=== PATIENT | male | born 1980 | race Caucasian/White ===

== ENCOUNTER 2018-08-30 22:41 | Observation (INO) | payer MEDICAID ==
[~2018-08-30] VITALS: Ht 160 cm; Wt 75.7 kg
[2018-08-31] MEDS ORDERED: FUROSEMIDE 40 MG INJ IV ONE (01:30)
[2018-08-31] MEDS ORDERED: morphine 2 MG INJ IV PRN ×2 (03:00→03:30)
[2018-08-31] MEDS ORDERED: NACL 0.9% 3 ML SYG IV SCH ×2 (03:00→03:30)
[2018-08-31] MEDS ORDERED: ONDANSETRON 4 MG INJ IV PRN ×2 (03:00→03:30)
--- NOTE | 2018-08-31 03:49 | ERD ---
ER Documentation Chief Complaint Chief Complaint Cirrohisis, c/o AP, SOB HPI This is a 29-year-old male who complains of abdominal pain and shortness of breath. Patient has history of cirrhosis and says he had increasing abdominal g irth over the past few days. Denies any fevers chills nausea vomiting denies any other current complaints. Denies any other current issues. Patient states that history of peritoneal times previously. ROS All systems reviewed and are negative except as per history of present illness. Allergies Allergies: Coded Allergies: No Known Allergy (Unverified , 08/30/18) PMhx/Soc Medical and Surgical Hx: pt denies Surgical Hx History of Surgery: No Anesthesia Reaction: No Hx Neurological Disorder: No Hx Respiratory Disorders: No Hx Cardiac Disorders: No Hx Psychiatric Problems: No Hx Miscellaneous Medical Probl: Yes (LIVER CIRRHOSIS) Hx Alcohol Use: Yes Hx Substance Use: No Hx Tobacco Use: Yes Smoking Status: Former smoker Physical Exam Vitals Vital Signs Date Temp Pulse Resp B/P (MAP) Pulse Ox O2 O2 Flow FiO2 Time Delivery Rate 08/31/18 98.3 80 16 126/81 98 Room Air 02:57 (96) 08/30/18 98.3 101 16 154/69 100 23:13 (97) Physical Exam Const: No acute distress Head: Atraumatic Eyes: Normal Conjunctiva ENT: Normal External Ears, Nose and Mouth. Neck: Full range of motion. No meningismus. Resp: Clear to auscultation bilaterally Cardio: Regular rate and rhythm, no murmurs Abd: Soft, non tender, palpable fluid wave. Normal bowel sounds Skin: No petechiae or rashes Back: No midline or flank tenderness Ext: No cyanosis, or edema Neur: Awake and alert Psych: Normal Mood and Affect Result Diagram: 08/31/18 0120 08/31/18 0120 Results 24 hrs Laboratory Tests Test 08/31/18 01:20 White Blood Count 3.3 10^3/ul Red Blood Count 3.11 10^6/ul Hemoglobin 10.6 g/dl Hematocrit 30.1 % Mean Corpuscular Volume 96.8 fl Mean Corpuscular Hemoglobin 34.1 pg Mean Corpuscular Hemoglobin Concent 35.2 g/dl Red Cell Distribution Width 13.8 % Platelet Count 49 10^3/UL Mean Platelet Volume 10.5 fl Immature Granulocytes % 0.300 % Neutrophils % 53.1 % Lymphocytes % 33.3 % Monocytes % 10.6 % Eosinophils % 2.1 % Basophils % 0.6 % Nucleated Red Blood Cells % 0.0 /100WBC Immature Granulocytes # 0.010 10^3/ul Neutrophils # 1.8 10^3/ul Lymphocytes # 1.1 10^3/ul Monocytes # 0.4 10^3/ul Eosinophils # 0.1 10^3/ul Basophils # 0.0 10^3/ul Nucleated Red Blood Cells # 0.0 10^3/ul Prothrombin Time 19.2 Sec Prothrombin Time Ratio 1.5 INR International Normalized Ratio 1.61 Activated Partial Thromboplast Time 37.1 Sec Sodium Level 136 mmol/L Potassium Level 3.4 mmol/L Chloride Level 101 mmol/L Carbon Dioxide Level 25 mmol/L Anion Gap 10 Blood Urea Nitrogen 12 mg/dl Creatinine 0.53 mg/dl Est Glomerular Filtrat Rate mL/min > 60 mL/min Glucose Level 94 mg/dl Calcium Level 8.4 mg/dl Total Bilirubin 2.2 mg/dl Direct Bilirubin 0.00 mg/dl Indirect Bilirubin 2.2 mg/dl Aspartate Amino Transf (AST/SGOT) 59 IU/L Alanine Aminotransferase (ALT/SGPT) 22 IU/L Alkaline Phosphatase 118 IU/L Troponin I < 0.012 ng/ml B-Type Natriuretic Peptide 82 PG/ML Total Protein 8.2 g/dl Albumin 3.3 g/dl Globulin 4.90 g/dl Albumin/Globulin Ratio 0.67 Ethyl Alcohol Level < 10.0 mg/dl Hepatitis B Surface Antigen Pending Hepatitis C Antibody Pending Current Medications Medications Dose Sig/Paula Start Time Status Last (Trade) Ordered Route PRN Stop Time Admin Dose Reason Admin Furosemide 40 mg ONCE ONCE 08/31/18 DC 08/31/18 (Lasix) IV 01:30 08/31/18 02:20 01:31 IV Flush 3 ml PER 08/31/18 (NS 3 ml) PROTOCOL IV 03:00 Ondansetron 4 mg Q6H PRN 08/31/18 HCl (Zofran IV 03:00 Inj) NAUSEA/VOMITI NG Morphine 2 mg Q4H PRN 08/31/18 Sulfate IV .SEVERE 03:00 (morphine) PAIN 7-10 IV Flush 3 ml PER 08/31/18 UNV (NS 3 ml) PROTOCOL IV 03:30 Ondansetron 4 mg Q6H PRN 08/31/18 UNV HCl (Zofran IV 03:30 Inj) NAUSEA/VOMITI NG Morphine 2 mg Q4H PRN 08/31/18 UNV Sulfate IV .SEVERE 03:30 (morphine) PAIN 7-10 40 mg DAILY@06 08/31/18 UNV Pantoprazole IV 06:00 (Protonix Iv) Procedures/MDM Chest X-ray 1V Interpreted by me: Soft Tissue: No acute abnormalities Bones: No acute abnormalities Mediastinum/Cardiac Silhouette/Lungs: [No acute abnormalities] Medical decision making: Is a 29-year-old male with a looks with tense ascites. Given the symptomatic nature, patient will be admitted for further evaluation management and likely peritoneal tap. Patient made aware to Dr. Whelan, the hospitalist vice president investor relations tonight. Departure Diagnosis: Primary Impression: Abdominal colic Condition: AMADOU Cheatham Aug 31, 2018 03:49
[2018-08-31 04:41] VITALS: Ht 160 cm; Wt 75.7 kg
[2018-08-31 05:14] VITALS: BP 128/72; PULSE 94; RESP 18
--- NOTE | 2018-08-31 05:29 | HP ---
Date/Time of Note Date/Time of Note DATE: 08/31/18 TIME: 05:29 Assessment/Plan VTE Prophylaxis SCD applied (from Nsg): Yes Pharmacological prophylaxis: NA/contraindicated Pharm contraindication: low risk/ambulating Lines/Catheters IV Catheter Type (from Nrsg): Saline Lock Assessment/Plan Hospital Course This is a 29-year-old male being admitted to the [facility] floor for: #1 acute on chronic decompensated alcoholic cirrhosis: Patient does present with abdominal ascites. Patient has a madrey score of 35 we will give the patient prednisone 40 mg p.o. x1, consult GI for further alcoholic hepatitis/cirrhosis management. Initiate the patient on Lasix 40 mg twice daily IV, will start spironolactone 25 mg p.o. daily. Patient at the current time is hesitant to proceed with ultrasound paracentesis ultrasound of the abdomen to assess ascites. 1 unit of platelets given patient's recent epistaxis, and possible need for paracentesis. continue lactulose #2 normocytic anemia: Secondary likely to underlying alcoholic cirrhosis. Currently no signs of active bleeding. Continue to monitor #3 thrombocytopenia: Secondary to alcoholic cirrhosis, will give 1 unit of platelets given that the patient has been having episodes of epistaxis. Also for possible paracentesis. #4 history of alcohol abuse: Patient reports that his last drink was 1 week ago and he has cut down the amount of drinking he is doing. We will need to encourage cessation. So the patient could be placed on a transplant list. #5 DVT GI prophylaxis: SCDs, Protonix Further treatment strategy will be implemented as per the clinical course. Result Diagram: 08/31/18 0120 08/31/18 0120 Results 24hrs Laboratory Tests Test 08/31/18 01:20 White Blood Count 3.3 L Red Blood Count 3.11 L Hemoglobin 10.6 L Hematocrit 30.1 L Mean Corpuscular Volume 96.8 Mean Corpuscular Hemoglobin 34.1 H Mean Corpuscular Hemoglobin Concent 35.2 Red Cell Distribution Width 13.8 Platelet Count 49 L Mean Platelet Volume 10.5 H Immature Granulocytes % 0.300 Neutrophils % 53.1 Lymphocytes % 33.3 Monocytes % 10.6 Eosinophils % 2.1 Basophils % 0.6 Nucleated Red Blood Cells % 0.0 Immature Granulocytes # 0.010 Neutrophils # 1.8 Lymphocytes # 1.1 Monocytes # 0.4 Eosinophils # 0.1 Basophils # 0.0 Nucleated Red Blood Cells # 0.0 Prothrombin Time 19.2 H Prothrombin Time Ratio 1.5 INR International Normalized Ratio 1.61 Activated Partial Thromboplast Time 37.1 H Sodium Level 136 Potassium Level 3.4 L Chloride Level 101 Carbon Dioxide Level 25 Anion Gap 10 Blood Urea Nitrogen 12 Creatinine 0.53 L Est Glomerular Filtrat Rate mL/min > 60 Glucose Level 94 Calcium Level 8.4 Total Bilirubin 2.2 H Direct Bilirubin 0.00 Indirect Bilirubin 2.2 H Aspartate Amino Transf (AST/SGOT) 59 H Alanine Aminotransferase (ALT/SGPT) 22 Alkaline Phosphatase 118 Troponin I < 0.012 B-Type Natriuretic Peptide 82 Total Protein 8.2 H Albumin 3.3 Globulin 4.90 H Albumin/Globulin Ratio 0.67 Ethyl Alcohol Level < 10.0 H Hepatitis B Surface Antigen NEGATIVE Hepatitis B Surface Antibody NEGATIVE Hepatitis C Antibody NEGATIVE HPI/ROS Admit Date/Time Admit Date/Time Aug 31, 2018 at 02:58 Hx of Present Illness Chief complaint: Abdominal distention This is a 37-year-old male with a history of alcoholic cirrhosis who presents today with worsening abdominal ascites. The patient presents today with a family member who reports that patient was diagnosed with cirrhosis approximately 4 months ago. He was initially started on Lasix as well as spironolactone. He has been following up at his clinic since then. He was discontinued off his spironolactone. At the current time he reports that he is noticing more abdominal distention which is resulting in a decreased appetite. He denies any fevers. He was offered a paracentesis in the past but he was hesitant to do it as he was somewhat scared. At the current time he only r eports that he is on Lasix. He denies any chest pain or nausea vomiting. Denies any hematuria or hematochezia, But does report recent nosebleeds. He reports his last alcoholic drink was 1 week ago. He has significantly cut down on his alcoholic intake he was previously a very heavy drinker. Allergies: NKDA Medications: See GABRIEL ROS Const: As per HPI Eyes : No pain discharge or redness or change in visual acuity ENT: No pain, sore throat, congestion, congestion, dysphagia or discharge Respiratory: No shortness of breath, cough, sputum, wheezing, or pleuritic pain Cardiovascular: No chest pain, palpitation, PND, or edema GI : As per HPI Genitourinary: No dysuria, hematuria, flank pain , discharge or CVA tenderness Musculoskeletal: No joint pain, back pain, neck pain, restricted range of motion in neck or joints Skin: No rash, bruising or hives Neuro: No headache, dizziness, syncope, seizure, focal weakness Endocrine: No polyuria, polydipsia, temperature intolerance Psych: No hallucination, depression, anxiety or suicidal ideation Additional Comments PROCEDURE: Single view chest. CLINICAL INDICATION: Chest pain TECHNIQUE: Single view of the chest was obtained COMPARISON: None FINDINGS: Lung volumes are diminished and there is mild elevation of the right diaphragm. No airspace consolidation, pleural effusion or pneumothorax. Cardiac silhouette and mediastinal contours are unremarkable. Regional bones appear intact. IMPRESSION: Diminished lung volumes and mild elevation of the right diaphragm. No additional acute findings. RPTAT: [facility] Physician Abad Date Time Electronically viewed and signed by Physician Abad on 08/31/2018 03:15 xB/ CC: AMADOU BRICEÑO [id number] PMH/Family/Social Past Medical History alcoholic cirrhosis Medications Current Medications IV Flush (NS 3 ml) 3 ml PER PROTOCOL IV ; Start 08/31/18 at 03:00 Ondansetron HCl (Zofran Inj) 4 mg Q6H PRN IV NAUSEA/VOMITING; Start 08/31/18 at 03:00 Morphine Sulfate (morphine) 2 mg Q4H PRN IV .SEVERE PAIN 7-10 Last administered on 08/31/18at 05:12; Admin Dose 2 MG; Start 08/31/18 at 03:00 IV Flush (NS 3 ml) 3 ml PER PROTOCOL IV ; Start 08/31/18 at 03:30 Ondansetron HCl (Zofran Inj) 4 mg Q6H PRN IV NAUSEA/VOMITING; Start 08/31/18 at 03:30 Morphine Sulfate (morphine) 2 mg Q4H PRN IV .SEVERE PAIN 7-10; Start 08/31/18 at 03:30 Pantoprazole (Protonix Iv) 40 mg DAILY@06 IV Last administered on 08/31/18at 05:01; Admin Dose 40 MG; Start 08/31/18 at 06:00 Coded Allergies: No Known Allergy (Unverified , 08/30/18) Past Surgical History Past Surgical Hx: no surgical history Family History Significant Family History: no pertinent family hx Social History former heavy drinker, over the last 4 months he has a cut down his drinking. Last drink was 1 week ago. Smoking Status: Never smoker Exam/Review of Systems Vital Signs Vitals Vital Signs Date Temp Pulse Resp B/P (MAP) Pulse Ox O2 O2 Flow FiO2 Time Delivery Rate 08/31/18 98.1 94 18 128/72 98 Room Air 05:14 (90) Exam Exam General: Patient is currently lying in bed in no acute distress HEENT: Atraumatic, normocephalic. The pupils are equal, round and reactive. Extraocular motor are intact, mild scleral icterus noted Neck: Supple with full range of motion. No rigidity or meningismus Chest: Nontender Lungs: Clear to auscultation bilaterally no crackles rales or wheezing Heart: Normal S1-S2, Regular rhythm and rate. No murmur, S3, or S4 Abdomen: Distended abdomen with ascites, non-tense, normal bowel sounds. No CVA tenderness bilaterally. Extremities: Normal to inspection, no edema no cyanosis Neurologic: Normal mental status, speech normal, cranial nerves II through XII are intact, motor and sensory are intact, Additional Comments PROCEDURE: Single view chest. CLINICAL INDICATION: Chest pain TECHNIQUE: Single view of the chest was obtained COMPARISON: None FINDINGS: Lung volumes are diminished and there is mild elevation of the right diaphragm. No airspace consolidation, pleural effusion or pneumothorax. Cardiac silhouette and mediastinal contours are unremarkable. Regional bones appear intact. IMPRESSION: Diminished lung volumes and mild elevation of the right diaphragm. No additional acute findings. RPTAT: [facility] Physician Abad Date Time Electronically viewed and signed by Physician Abad on 08/31/2018 03:15 xB/ CC: AMADOU BRICEÑO [id number] HAO MALLORY Aug 31, 2018 05:29
[2018-08-31] MEDS ORDERED: PANTOPRAZOLE 40 MG INJ IV SCH (06:00)
[2018-08-31 08:05] VITALS: BP 113/59; PULSE 88; RESP 15
[2018-08-31] MEDS ORDERED: LACTULOSE 30ML CUP PO PRN (09:00)
[2018-08-31] MEDS ORDERED: MAGNESIUM SULFATE 2 GM/50 ML 50 ML IVPB ONE (09:00)
[2018-08-31] MEDS ORDERED: SPIRONOLACTONE 25 MG TAB PO SCH (09:00)
[2018-08-31] MEDS ORDERED: predniSONE 20 MG TAB PO ONE (10:00)
--- NOTE | 2018-08-31 10:44 | CONS ---
Assessment/Plan Assessment/Plan Hospital Course (Demo Recall) Summary Assessment and Plan: Assessment: Decompensated alcoholic cirrhosis with ascites with sequela (MELD 16) -Last drink 1 week ago DF 22 Thrombocytopenia Coagulopathy Normocytic anemia Elevated LFTs (ast>alt) indirect hyperbilirubinemia History of alcohol abuse last drink 1 week ago Plan: We will adjust medication to spiral lactone 100 mg p.o. daily and furosemide p.o. 40 mg p.o. daily Will give vitamin K 10 mg subq x2 doses Platelets have been ordered Paracentesis pending Patient to follow-up with GI for outpatient upper endoscopy Patient seen in collaboration with Dr. George CC: CYNTHIA GEORGE MD ; Consultation Date/Type/Reason Admit Date/Time Aug 31, 2018 at 02:58 Date of Consultation: Aug 31, 2018 Type of Consult GI Date/Time of Note DATE: 08/31/18 TIME: 10:40 Hx of Present Illness This is a 37-year-old male with past medical history of alcoholism drinking up to 440s of beer per day. Patient states he quit drinking about 4 months ago when he was diagnosed with liver cirrhosis however he recently started drinking again his last drink being about 1 week ago. Patient presented to the hospital with complaints of abdominal pain and increased abdominal girth.Here an abdominal ultrasound was obtained showing large volume of ascites and liver consistent with cirrhosis additionally labs supports imaging with coagulopathy, thrombocytopenia, elevated LFTs with AST greater than ALT and normocytic anemia at this time. Serology was obtained for hepatitis which was negative for hepatitis B and C. Discuss plan of paracentesis with patient verbalized understanding reviewed risk/benefits. We also discussed plan to follow-up with GI after discharge as patient will need outpatient upper endoscopy for esophageal varices surveillance. Review of Systems: A 12 system, review was conducted and is negative except as noted in the HPI or here. Past Medical History Medications Current Medications IV Flush (NS 3 ml) 3 ml PER PROTOCOL IV ; Start 08/31/18 at 03:30 Ondansetron HCl (Zofran Inj) 4 mg Q6H PRN IV NAUSEA/VOMITING; Start 08/31/18 at 03:30 Morphine Sulfate (morphine) 2 mg Q4H PRN IV .SEVERE PAIN 7-10; Start 08/31/18 at 03:30 Pantoprazole (Protonix Iv) 40 mg DAILY@06 IV Last administered on 08/31/18at 05:01; Admin Dose 40 MG; Start 08/31/18 at 06:00 Furosemide (Lasix) 40 mg BID DIURETICS IV ; Start 08/31/18 at 18:00 Spironolactone (Aldactone) 25 mg DAILY PO Last administered on 08/31/18at 09:40; Admin Dose 25 MG; Start 08/31/18 at 09:00 Magnesium Sulfate 50 ml @ 25 mls/hr ONCE ONCE IVPB ; Start 08/31/18 at 09:00; Stop 08/31/18 at 10:59 Lactulose (Enulose) 10 gm BID PRN PO CONSTIPATION; Start 08/31/18 at 09:00 Allergies: Coded Allergies: No Known Allergy (Unverified , 08/30/18) Past Surgical History Past Surgical Hx: no surgical history Social History Smoking Status: Never smoker Exam/Review of Systems Exam Vitals Vital Signs Date Temp Pulse Resp B/P (MAP) Pulse Ox O2 O2 Flow FiO2 Time Delivery Rate 08/31/18 98.6 88 15 113/59 98 Room Air 08:05 (77) Exam PHYSICAL EXAMINATION: GENERAL: Alert & oriented x 3, in no acute distress SKIN: No lesions. EYES: Pupils equal reactive to light, no discharge. EARS/NOSE AND THROAT: Ears normal, nose normal, oropharynx normal NECK: Supple, no masses CHEST: Inspection within normal limits. CARDIOVASCULAR: Heart: Regular rate and rhythm RESPIRATORY: Lungs clear to auscultation GASTROINTESTINAL AND LIVER: Abdomen: Soft, non tenderness, distended, no hernias, no masses, no organomegaly, ascites, no guarding, no rebound tenderness , normoactive bowel sounds. Rectal: Deferred. EXTREMITIES: No cyanosis, clubbing or edema. Results Result Diagram: 08/31/18 0120 08/31/18 0120 Results 24hrs Laboratory Tests Test 08/31/18 01:20 08/31/18 04:52 08/31/18 07:22 White Blood Count 3.3 L Red Blood Count 3.11 L Hemoglobin 10.6 L Hematocrit 30.1 L Mean Corpuscular Volume 96.8 Mean Corpuscular Hemoglobin 34.1 H Mean Corpuscular Hemoglobin Concent 35.2 Red Cell Distribution Width 13.8 Platelet Count 49 L Mean Platelet Volume 10.5 H Immature Granulocytes % 0.300 Neutrophils % 53.1 Lymphocytes % 33.3 Monocytes % 10.6 Eosinophils % 2.1 Basophils % 0.6 Nucleated Red Blood Cells % 0.0 Immature Granulocytes # 0.010 Neutrophils # 1.8 Lymphocytes # 1.1 Monocytes # 0.4 Eosinophils # 0.1 Basophils # 0.0 Nucleated Red Blood Cells # 0.0 Prothrombin Time 19.2 H Prothrombin Time Ratio 1.5 INR International Normalized Ratio 1.61 Activated Partial Thromboplast Time 37.1 H Sodium Level 136 Potassium Level 3.4 L Chloride Level 101 Carbon Dioxide Level 25 Anion Gap 10 Blood Urea Nitrogen 12 Creatinine 0.53 L Est Glomerular Filtrat Rate mL/min > 60 Glucose Level 94 Calcium Level 8.4 Total Bilirubin 2.2 H Direct Bilirubin 0.00 Indirect Bilirubin 2.2 H Aspartate Amino Transf (AST/SGOT) 59 H Alanine Aminotransferase (ALT/SGPT) 22 Alkaline Phosphatase 118 Troponin I < 0.012 B-Type Natriuretic Peptide 82 Total Protein 8.2 H Albumin 3.3 Globulin 4.90 H Albumin/Globulin Ratio 0.67 Ethyl Alcohol Level < 10.0 H Hepatitis B Surface Antigen NEGATIVE NEGATIVE Hepatitis B Surface Antibody NEGATIVE Hepatitis C Antibody NEGATIVE NEGATIVE Hemoglobin A1c 4.4 Magnesium Level 1.6 L Triglycerides Level 50 Cholesterol Level 124 LDL Cholesterol, Calculated 68 HDL Cholesterol 46 Cholesterol/HDL Ratio 2.6 Hepatitis B Core Total Antibody NEGATIVE Medications Medication Current Medications IV Flush (NS 3 ml) 3 ml PER PROTOCOL IV ; Start 08/31/18 at 03:30 Ondansetron HCl (Zofran Inj) 4 mg Q6H PRN IV NAUSEA/VOMITING; Start 08/31/18 at 03:30 Morphine Sulfate (morphine) 2 mg Q4H PRN IV .SEVERE PAIN 7-10; Start 08/31/18 at 03:30 Pantoprazole (Protonix Iv) 40 mg DAILY@06 IV Last administered on 08/31/18at 05:01; Admin Dose 40 MG; Start 08/31/18 at 06:00 Furosemide (Lasix) 40 mg BID DIURETICS IV ; Start 08/31/18 at 18:00 Spironolactone (Aldactone) 25 mg DAILY PO Last administered on 08/31/18at 09:40; Admin Dose 25 MG; Start 08/31/18 at 09:00 Magnesium Sulfate 50 ml @ 25 mls/hr ONCE ONCE IVPB ; Start 08/31/18 at 09:00; Stop 08/31/18 at 10:59 Lactulose (Enulose) 10 gm BID PRN PO CONSTIPATION; Start 08/31/18 at 09:00 OSMANI HANNA Aug 31, 2018 10:44
[2018-08-31 11:29] VITALS: BP 122/72; PULSE 89; RESP 15
[2018-08-31 12:13] VITALS: BP 118/71; PULSE 89; RESP 16
[2018-08-31] MEDS: PHYTONADIONE 10 MG/ML INJ SC SCH (12:41)
--- NOTE | 2018-08-31 15:57 | PN ---
Date/Time of Note Date/Time of Note DATE: 08/31/18 TIME: 15:54 Assessment/Plan VTE Prophylaxis Risk score (from Ns)>0 risk: 3 SCD applied (from Ns): Yes Pharmacological prophylaxis: NA/contraindicated Pharm contraindication: low risk/ambulating Lines/Catheters IV [facility] Saline Lock Urinary Cath still in place: No Assessment/Plan Assessment/Plan 29 yo with likely alcoholic cirrhosis presents with distended ascites #Ascites - Not tense - Patient complains of difficulty taking deep breath. - Discussed benefits and risks; patient is agreeable - Transfuse platelets, ordered US-guided para. #Cirrhosis - Patient does report he continues to drink occasional alcohol. - However with low bilirubin, alcoholic hepatitis very unlikely. Stopped steroids. - Encouraged alcohol cessation. - Outpatient screening EGD. # normocytic anemia: Secondary likely to underlying alcoholic cirrhosis. Currently no signs of active bleeding. Continue to monitor # thrombocytopenia: Secondary to alcoholic cirrhosis, will give 1 unit of guy telets given that the patient has been having episodes of epistaxis. Also for possible paracentesis. # DVT GI prophylaxis: SCDs, Protonix Result Diagram: 08/31/18 01208/31/18 012 Subjective 24 Hr Interval Summary Free Text/Dictation No acute events today. Patient agreeable to paracentesis. Taken down late this afternoon. Exam/Review of Systems Exam Vitals Vital Signs Date Temp Pulse Resp B/P (MAP) Pulse Ox O2 O2 Flow FiO2 Time Delivery Rate 08/31/18 98.6 89 16 118/71 99 Room Air 12:13 (87) Exam General: Patient is currently lying in bed in no acute distress HEENT: Atraumatic, normocephalic. The pupils are equal, round and reactive. Extraocular motor are intact, mild scleral icterus noted Neck: Supple with full range of motion. No rigidity or meningismus Chest: Nontender Lungs: Clear to auscultation bilaterally no crackles rales or wheezing Heart: Normal S1-S2, Regular rhythm and rate. No murmur, S3, or S4 Abdomen: Distended abdomen with ascites, non-tense, normal bowel sounds. No CVA tenderness bilaterally. Extremities: Normal to inspection, no edema no cyanosis Results Results 24hrs Laboratory Tests Test 08/31/18 01:20 08/31/18 04:52 08/31/18 07:22 08/31/18 09:50 White Blood Count 3.3 L Red Blood Count 3.11 L Hemoglobin 10.6 L Hematocrit 30.1 L Mean Corpuscular Volume 96.8 Mean Corpuscular 34.1 H Hemoglobin Mean Corpuscular 35.2 Hemoglobin Concent Red Cell Distribution 13.8 Width Platelet Count 49 L Mean Platelet Volume 10.5 H Immature Granulocytes % 0.300 Neutrophils % 53.1 Lymphocytes % 33.3 Monocytes % 10.6 Eosinophils % 2.1 Basophils % 0.6 Nucleated Red Blood 0.0 Cells % Immature Granulocytes # 0.010 Neutrophils # 1.8 Lymphocytes # 1.1 Monocytes # 0.4 Eosinophils # 0.1 Basophils # 0.0 Nucleated Red Blood 0.0 Cells # Prothrombin Time 19.2 H Prothrombin Time Ratio 1.5 INR International 1.61 Normalized Ratio Activated 37.1 H Partial Thromboplast Time Sodium Level 136 Potassium Level 3.4 L Chloride Level 101 Carbon Dioxide Level 25 Anion Gap 10 Blood Urea Nitrogen 12 Creatinine 0.53 L Est Glomerular Filtrat > 60 Rate mL/min Glucose Level 94 Calcium Level 8.4 Total Bilirubin 2.2 H Direct Bilirubin 0.00 Indirect Bilirubin 2.2 H Aspartate Amino 59 H Transf (AST/SGOT) Alanine 22 Aminotransferase (ALT/SG PT) Alkaline Phosphatase 118 Troponin I < 0.012 B-Type Natriuretic 82 Peptide Total Protein 8.2 H Albumin 3.3 Globulin 4.90 H Albumin/Globulin Ratio 0.67 Ethyl Alcohol Level < 10.0 H Hepatitis B Surface NEGATIVE NEGATIVE Antigen Hepatitis B Surface NEGATIVE Antibody Hepatitis C Antibody NEGATIVE NEGATIVE Hemoglobin A1c 4.4 Magnesium Level 1.6 L Triglycerides Level 50 Cholesterol Level 124 LDL Cholesterol, 68 Calculated HDL Cholesterol 46 Cholesterol/HDL Ratio 2.6 Hepatitis B Core NEGATIVE Total Antibody Urine Opiates Screen Positive Urine Barbiturates Negative Urine Amphetamines Negative Screen Urine Benzodiazepines Negative Screen Urine Cocaine Screen Negative Urine Cannabinoids Negative Medications Medication Current Medications IV Flush (NS 3 ml) 3 ml PER PROTOCOL IV ; Start 08/31/18 at 03:30 Ondansetron HCl (Zofran Inj) 4 mg Q6H PRN IV NAUSEA/VOMITING; Start 08/31/18 at 03:30 Morphine Sulfate (morphine) 2 mg Q4H PRN IV .SEVERE PAIN 7-10; Start 08/31/18 at 03:30 Lactulose (Enulose) 10 gm BID PRN PO CONSTIPATION; Start 08/31/18 at 09:00 Spironolactone (Aldactone) 100 mg DAILY PO ; Start 09/01/18 at 09:00 Furosemide (Lasix) 40 mg DAILY PO ; Start 09/01/18 at 09:00 Phytonadione (Vitamin K) 10 mg DAILY SC Last administered on 08/31/18at 12:41; Admin Dose 10 MG; Start 08/31/18 at 11:30; Stop 09/01/18 at 09:01 URI NUNEZ MD Aug 31, 2018 15:57
[2018-08-31] MEDS ORDERED: LIDOCAINE 1% (MPF) 5 ML VIAL ONE (16:10)
[2018-08-31 16:45] VITALS: BP 117/71; PULSE 96; RESP 18
[2018-08-31] MEDS ORDERED: FUROSEMIDE 40 MG INJ IV SCH (18:00)
[2018-08-31 20:11] VITALS: BP 117/62; PULSE 108; RESP 18
[2018-09-01 02:48] VITALS: BP 96/55; PULSE 84; RESP 18
[2018-09-01 07:54] VITALS: BP 99/56; PULSE 73; RESP 18
[2018-09-01] MEDS ORDERED: SPIRONOLACTONE 25 MG TAB PO SCH (09:00)
[2018-09-01] MEDS ORDERED: FUROSEMIDE 40 MG TAB PO SCH (09:00)
[2018-09-01] MEDS: PHYTONADIONE 10 MG/ML INJ SC SCH (09:34)
[2018-09-01] MEDS ORDERED: FURO40TA4 PO (11:05)
[2018-09-01] MEDS ORDERED: SPIR25TA PO (11:05)
--- NOTE | 2018-09-01 11:13 | PDOCDIS ---
Discharge Instructions DIAGNOSIS Discharge Diagnosis Alcoholic cirrhosis with ascites CONDITION [id number] Patient Condition: Emevi1g Fair HOME CARE INSTRUCTIONS: [id number] Diet Instructions: [id number] Reduced Sodium ACTIVITY: [id number] Activity Restrictions: [id number] No Restrictions FOLLOW UP/APPOINTMENTS Follow-up Plan 1. Any further alcohol with permanently damage your liver and make you ineligible for liver transplant. It is very important to completely stop alcohol. 2. Change the dressing on your abdomen whenever it gets wet. It should completely heal in 5-7 days. 3. To prevent the fluid in your abdomen from coming back, avoid excess salt in your food (no more than 2000 mg per day). 4. Also, the two medications prescribed, lasix and spironolactone, will prevent the fluid from coming back. 5. See your primary care doctor in 1-2 weeks. If you don't have a primary care doctor you can go to [facility]. 1. Cualquier otro alcohol con maranda permanente en calix hgado y que no sea elegible para un trasplante de hgado. Es muy importante dejar completamente el alcohol. 2. Cambie el apsito en calix abdomen cada vez que se moje. Debe sanar completamente en 5-7 everett. 3. Para evitar que el lquido en calix abdomen regrese, evite el exceso de bobby en calix comida (no ms de 2000 mg por da). 4. Adems, los dos medicamentos recetados, lasix y espironolactona, evitarn que el lquido regrese. 5. Consulte a calix mdico de atencin primaria en 1-2 semanas. Si no tiene un mdico de atencin primaria, puede ir al [facility] URI NUNEZ MD Sep 01, 2018 11:13
--- NOTE | 2018-09-01 14:43 | DS ---
Date/Time of Note Date/Time of Note DATE: 09/01/18 TIME: 14:41 Discharge Summary Admission/Discharge Info Admit Date/Time Aug 31, 2018 at 02:58 Discharge Date/Time Sep 01, 2018 Discharge Diagnosis Alcoholic cirrhosis with ascites Patient Condition: Good Consults Dr. George, gastroenterology Procedures US-guided paracentesis Hx of Present Illness Chief complaint: Abdominal distention This is a 37-year-old male with a history of alcoholic cirrhosis who presents today with worsening abdominal ascites. The patient presents today with a family member who reports that patient was diagnosed with cirrhosis approximately 4 months ago. He was initially started on Lasix as well as spironolactone. He has been following up at his clinic since then. He was discontinued off his spironolactone. At the current time he reports that he is noticing more abdominal distention which is resulting in a decreased appetite. He denies any fevers. He was offered a paracentesis in the past but he was hesitant to do it as he was somewhat scared. At the current time he only reports that he is on Lasix. He denies any chest pain or nausea vomiting. Denies any hematuria or hematochezia, But does report recent nosebleeds. He reports his last alcoholic drink was 1 week ago. He has significantly cut down on his alcoholic intake he was previously a very heavy drinker. Allergies: NKDA Medications: See MAR Hospital Course The patient was admitted. Mild thrombocytopenia, transfused 1 unit platelets. Taken for paracentesis with 5L removed. Fluid negative for SBP. Discharged afterwards in good condition with lasix and spironolactone. Home Meds Active Scripts Furosemide* (Furosemide*) 40 Mg Tablet, 40 MG PO DAILY, #90 TAB Prov:URI NUNEZ MD 09/01/18 Spironolactone* (Aldactone*) 25 Mg Tablet, 100 MG PO DAILY, #90 TAB Prov:URI NUNEZ MD 09/01/18 Follow-up Plan 1. Any further alcohol with permanently damage your liver and make you ineligible for liver transplant. It is very important to completely stop alcohol. 2. Change the dressing on your abdomen whenever it gets wet. It should completely heal in 5-7 days. 3. To prevent the fluid in your abdomen from coming back, avoid excess salt in your food (no more than 2000 mg per day). 4. Also, the two medications prescribed, lasix and spironolactone, will prevent the fluid from coming back. 5. See your primary care doctor in 1-2 weeks. If you don't have a primary care doctor you can go to [facility]. 1. Cualquier otro alcohol con maranda permanente en calix hgado y que no sea elegible para un trasplante de hgado. Es muy importante dejar completamente el alcohol. 2. Cambie el apsito en cailx abdomen cada vez que se moje. Debe sanar completamente en 5-7 everett. 3. Para evitar que el lquido en calix abdomen regrese, evite el exceso de bobby en calix comida (no ms de 2000 mg por da). 4. Adems, los dos medicamentos recetados, lasix y espironolactona, evitarn que el lquido regrese. 5. Consulte a calix mdico de atencin primaria en 1-2 semanas. Si no tiene un mdico de atencin primaria, puede ir al [facility] Primary Care Provider Care Physician No Primary Time spent on discharge: > 30 minutes Pending Labs Laboratory Tests Test 08/31/18 16:00 09/01/18 04:21 09/01/18 07:12 Body Fluid Type ASCITES Body Fluid Volume 1050.0 ml Body Fluid Color YELLOW Body Fluid Appearance CLEAR Body Fluid WBC 138 /cmm Body Fluid RBC (Auto) 0 /uL Body Fluid Polynuclear 8.0 % WBCs (%) Body Fluid Mononuclear 92.0 % Cells % Auto White Blood Count 4.1 10^3/ul (4.8-10.8) Red Blood Count 2.95 10^6/ul (4.70-6.10) Hemoglobin 9.9 g/dl (14.0-18.0) Hematocrit 28.3 % (42.0-52.0) Mean Corpuscular 95.9 fl (82.0-101.0) Volume Mean Corpuscular 33.6 pg (29.0-33.0) Hemoglobin Mean Corpuscular 35.0 g/dl (32.0-37.0) Hemoglobin Concent Red Cell Distribution 13.7 % (11.5-14.5) Width Platelet Count 54 10^3/UL (140-415) Mean Platelet Volume 11.3 fl (7.4-10.4) Immature Granulocytes 0.200 % (0.001-0.429) % Neutrophils % 61.5 % (39.0-77.0) Lymphocytes % 27.1 % (15.0-51.0) Monocytes % 10.2 % (0.0-11.0) Eosinophils % 0.5 % (0.0-7.0) Basophils % 0.5 % (0.0-2.0) Nucleated Red Blood 0.0 /100WBC (0.0-0.0) Cells % Immature Granulocytes 0.010 # 10^3/ul (0.0-0.031) Neutrophils # 2.5 10^3/ul (1.6-7.5) Lymphocytes # 1.1 10^3/ul (0.8-2.9) Monocytes # 0.4 10^3/ul (0.3-0.9) Eosinophils # 0.0 10^3/ul (0.0-0.5) Basophils # 0.0 10^3/ul (0.0-0.1) Nucleated Red Blood 0.0 10^3/ul (0.0-0.0) Cells # Sodium Level 139 mmol/L (135-144) Potassium Level 4.0 mmol/L (3.5-5.1) Chloride Level 104 mmol/L (97-110) Carbon Dioxide Level 27 mmol/L (21-31) Anion Gap 8 (5-13) Blood Urea Nitrogen 12 mg/dl (7-20) Creatinine 0.57 mg/dl (0.61-1.24) Est Glomerular Filtrat > 60 mL/min (>60) Rate mL/min Glucose Level 99 mg/dl (70-220) Calcium Level 8.1 mg/dl (8.4-10.2) Total Bilirubin 1.9 mg/dl (0.2-1.3) Direct Bilirubin 0.00 mg/dl (0.00-0.20) Indirect Bilirubin 1.9 mg/dl (0-1.1) Aspartate Amino 46 IU/L (15-46) Transf (AST/SGOT) Alanine 20 IU/L (13-69) Aminotransferase (ALT/S GPT) Alkaline Phosphatase 110 IU/L (42-121) Ammonia 12 umol/l (9-30) Total Protein 7.3 g/dl (6.1-8.1) Albumin 2.8 g/dl (3.3-4.9) Globulin 4.50 g/dl (1.3-3.2) Albumin/Globulin Ratio 0.62 Thyroid Stimulating 0.645 Hormone (TSH) MIU/L (0.465-4.680) Lab Scanned Report BLOOD TRANSFUSION Microbiology Date/Time Source Procedure Growth Status 08/31/18 16:00 Paracentesis Fluid Gram Stain - Final Resulted 08/31/18 16:00 Paracentesis Fluid Body Fluid Culture - Preliminary Resulted URI NUNEZ MD Sep 01, 2018 14:43
== END 2018-09-01 14:57 | disposition home or self-care (01) ==
LOC: E/R 22:41 → MS1 08-31 02:58
PROVIDERS: ADMIT Family Medicine; ATTEND Internal Medicine
DX: K70.31 Alcoholic cirrhosis of liver with ascites (principal); Z87.891 Personal history of nicotine dependence; D64.9 Anemia, unspecified; D69.6 Thrombocytopenia, unspecified
CPT/HCPCS: 36415; 36430; 49083; 71045; 76705; 80053; 80061; 80307; 82042; 82140; 83036; 83735; 83880; 84443; 84484; 85025; 85610; 85730; 86644; 86704; 86706; 86709; 86803; 86850; 86900; 86901; 87070; 87102; 87116; 87340; 89051; 93005; 96374; C9113; J1940; J2270; J3430; J3475; J7512; P9035; Z7500; Z7502; Z7610; G0378